=== PATIENT | male | born 1990 | race Caucasian/White ===

== ENCOUNTER 2017-06-27 13:15 | Emergency (ER) | payer BC ==
[~2017-06-27] VITALS: Ht 185.4 cm; Wt 79.5 kg
[2017-06-27 13:18] VITALS: BP 154/92; TEMP 97.6
[2017-06-27 14:49] VITALS: PULSE 74
== END 2017-06-27 14:46 | disposition home or self-care (01) ==
LOC: COL.ER 13:15
DX: R51 Headache (principal); F32.9 Major depressive disorder, single episode, unspecified